=== PATIENT | female | born 1995 | race African-American/Black ===

== ENCOUNTER 2018-10-07 00:48 | Emergency (ER) | payer OTHER ==
[~2018-10-07] VITALS: Ht 160 cm; Wt 108.9 kg
[2018-10-07] MEDS ORDERED: ACETAMINOPHEN-1 EAC1 PO (01:44)
[2018-10-07] MEDS ORDERED: PREDNISONE 20 M20 MG PO (01:44)
[2018-10-07] MEDS ORDERED: HYDROCORTISONE30 G9 RECTAL (02:03)
[2018-10-07 02:32] VITALS: BP 116/57
[2018-10-07 09:06] LABS: HSV PCR SOURCE VAGINA
[2018-10-09 22:09] LABS: HSV 1 DNA Negative (Negative); HSV 2 DNA Negative (Negative)
== END 2018-10-07 02:33 | disposition home or self-care (01) ==
LOC: ER 00:48 → EDBD 00:48 → ER 02:33
PROVIDERS: Emergency Medicine
DX: O99.611 Diseases of the digestive system complicating pregnancy, first trimester (principal); K62.5 Hemorrhage of anus and rectum; K59.00 Constipation, unspecified; O99.89 Other specified diseases and conditions complicating pregnancy, childbirth and the puerperium; M79.675 Pain in left toe(s)